=== PATIENT | female | born 1950 | race Caucasian/White ===

== ENCOUNTER 2017-01-11 22:42 | Inpatient (IN) | payer MEDICARE, OTHER ==
[~2017-01-11 22:42] MED LIST: COREG 3.125M3.125 MG PO; EFFIENT10 MG PO; RAMIPRIL PO
[2017-01-11 23:57] LABS: HEMOGLOBIN 13.1 gm/dl (12.3-15.3); RED BLOOD COUNT 4.19 M/UL (4.00-5.10); WHITE BLOOD COUNT 13.9 K/UL (4.5-11.0)
[2017-01-12 00:06] LABS: BUN/CREATININE RATIO 17 (0-10)
[2017-01-12] MEDS ORDERED: ASPIR 8181 MG PO (13:02)
[2017-01-12] MEDS ORDERED: SYNTHROID25 MCG PO (13:02)
[2017-01-12] MEDS ORDERED: PLAVIX 75 MG TA75 MG PO (13:04)
[2017-01-12] MEDS ORDERED: REMERON15 MG PO (13:04)
[2017-01-12] MEDS ORDERED: PROZAC40 MG PO (13:05)
[2017-01-13 05:12] LABS: RED BLOOD COUNT 3.6 M/UL (4.00-5.10); WHITE BLOOD COUNT 6.9 K/UL (4.5-11.0)
[2017-01-13 05:13] LABS: HEMOGLOBIN 11.1 gm/dl (12.3-15.3)
[2017-01-13 05:35] LABS: BUN/CREATININE RATIO 13 (0-10)
== END 2017-01-16 17:38 | disposition home or self-care (01) | DRG 439 ==
LOC: ER1 22:42 → ZEROF 01-12 08:15 → M/S 01-12 08:15
PROVIDERS: Student in an Organized Health Care Education/Training Program; ADMIT Internal Medicine
DX: K85.90 Acute pancreatitis without necrosis or infection, unspecified (principal); R65.10 Systemic inflammatory response syndrome (SIRS) of non-infectious origin without acute organ dysfunction; I25.10 Atherosclerotic heart disease of native coronary artery without angina pectoris; J44.9 Chronic obstructive pulmonary disease, unspecified; E03.9 Hypothyroidism, unspecified; E78.5 Hyperlipidemia, unspecified; E66.9 Obesity, unspecified; R73.03 Prediabetes; F32.9 Major depressive disorder, single episode, unspecified; F17.200 Nicotine dependence, unspecified, uncomplicated; I25.2 Old myocardial infarction; Z95.5 Presence of coronary angioplasty implant and graft; Z85.820 Personal history of malignant melanoma of skin; Z68.33 Body mass index [BMI] 33.0-33.9, adult; Z79.02 Long term (current) use of antithrombotics/antiplatelets; Z79.82 Long term (current) use of aspirin; Z79.899 Other long term (current) drug therapy; Z80.0 Family history of malignant neoplasm of digestive organs; Z80.3 Family history of malignant neoplasm of breast; Z80.41 Family history of malignant neoplasm of ovary
CPT/HCPCS: 36415; 71020; 76705; 80053; 80061; 81001; 82150; 82248; 82550; 82553; 82962; 83036; 83690; 83735; 83874; 84484; 85025; 93005; 96361; 96374; 96375; 99285; J2270; J2405; J7030; J7050; Q9962

== ENCOUNTER 2021-08-19 16:38 | Emergency (ER) | payer MEDICARE, OTHER ==
[~2021-08-19 16:38] MED LIST changes: +ASPIR 8181 MG PO; +PLAVIX 75 MG TA75 MG PO; +PROZAC40 MG PO; +REMERON15 MG PO; +SYNTHROID25 MCG PO
[2021-08-19] MEDS ORDERED: LODINE CAP 300300 MG PO (20:01)
== END 2021-08-19 19:00 | disposition home or self-care (01) ==
LOC: ER1 16:38
DX: S89.92XA Unspecified injury of left lower leg, initial encounter (principal); S80.02XA Contusion of left knee, initial encounter; S80.12XA Contusion of left lower leg, initial encounter; E11.9 Type 2 diabetes mellitus without complications; I51.9 Heart disease, unspecified; F17.210 Nicotine dependence, cigarettes, uncomplicated; Z86.73 Personal history of transient ischemic attack (TIA), and cerebral infarction without residual deficits; W19.XXXA Unspecified fall, initial encounter; Y92.009 Unspecified place in unspecified non-institutional (private) residence as the place of occurrence of the external cause
CPT/HCPCS: 73564; 73590; 99283

== ENCOUNTER 2022-07-06 17:20 | Emergency (ER) | payer MEDICARE, OTHER ==
[~2022-07-06 17:20] MED LIST changes: +LODINE CAP 300300 MG PO
[2022-07-06] MEDS ORDERED: MELOXICAM15 MG PO (20:37)
== END 2022-07-06 20:40 | disposition home or self-care (01) ==
LOC: ER1 17:20
DX: S63.501A Unspecified sprain of right wrist, initial encounter (principal); I10 Essential (primary) hypertension; E78.5 Hyperlipidemia, unspecified; F17.200 Nicotine dependence, unspecified, uncomplicated; Z86.73 Personal history of transient ischemic attack (TIA), and cerebral infarction without residual deficits; W19.XXXA Unspecified fall, initial encounter
CPT/HCPCS: 73090; 73130; 99283